=== PATIENT | female | born 1965 | race Caucasian/White ===

== ENCOUNTER 2017-11-24 12:44 | Inpatient (IN) ==
[2017-11-24 14:22] LABS: Baso % (Auto) 0.3 % (0.0-2.0); Eos # (Auto) 0.1 th/mm3 (0.0-0.4); Eos % (Auto) 1.3 % (0.0-4.0); Hematocrit 38.1 % (35.0-46.0); Hemoglobin 12.8 gm/dL (11.6-15.3); Lymph # (Auto) 2.1 th/mm3 (1.0-4.8); Lymph % (Auto) 28.9 % (9.0-44.0); Mean Corpuscular HGB Conc 33.6 % (32.0-36.0); Mean Corpuscular Hemoglobin 31.4 pg (27.0-34.0); Mean Corpuscular Volume 93.5 fL (80.0-100.0); Mean Platelet Volume 6.4 fL (7.0-11.0); Mono # (Auto) 0.5 th/mm3 (0.0-0.9); Neut # (Auto) 4.6 th/mm3 (1.8-7.7); Neut % (Auto) 62.5 % (16.0-70.0); Platelet Count 442 th/mm3 (150-450); Red Blood Count 4.07 mil/mm3 (4.00-5.30); Red Cell Distribution Width 12.9 % (11.6-17.2); White Blood Count 7.3 th/mm3 (4.0-11.0)
[2017-11-24 14:27] LABS: Bilirubin,Urine Negative (Negative); Clarity,Urine Clear (Clear); Color,Urine Straw (Yellw/Straw); Glucose,Urine (UA) Negative (Negative); Leukocyte Esterase,Urine Trace (Negative); Mucus,Urine Few /lpf (Occasional); Nitrite,Urine Negative (Negative); Squamous Epithelial Cell,Urine 3 /hpf (0-5)
[2017-11-24 14:33] LABS: Amphetamine Screen,Urine Neg (Neg); Barbiturate Screen,Urine Neg (Neg); Cannabinoid Screen,Urine Neg (Neg); Cocaine Screen,Urine Neg (Neg)
[2017-11-24 14:39] LABS: Anion Gap 7 meq/L (5-15); Aspartate Aminotransferase 17 U/L (15-37); Blood Urea Nitrogen 6 mg/dL (7-18); Calcium 8.6 mg/dL (8.5-10.1); Carbon Dioxide 27.6 meq/L (21.0-32.0); Chloride 103 meq/L (98-107); Glomerular Filtration Rate Greater Than 89 mL/min (>89); Glucose,Random 104 mg/dL (74-106); Potassium 3.7 meq/L (3.5-5.1); Sodium 138 meq/L (136-145)
[2017-11-24 14:40] LABS: Alanine Aminotransferase 31 U/L (10-53)
[2017-11-24 14:50] LABS: Alkaline Phosphatase 158 U/L (45-117); Thyroid Stimulating Hormone 0.505 uIU/mL (0.358-3.740); Total Protein 7.4 g/dL (6.4-8.2)
[2017-11-24 14:56] LABS: Opiate Screen,Urine Neg (Neg)
--- NOTE | 2017-11-24 15:16 | ED ---
HPI General Chief Complaint: Psychiatric Symptoms Stated Complaint: eval Time Seen by Provider: 11/24/17 13:45 Source: patient and family Mode of arrival: ambulatory Limitations: no limitations History of Present Illness HPI Narrative: Patient is a 52-year-old female presenting to the emergency department voluntarily for psychiatric evaluation. Patient states she has a history of bipolar 1 disorder, her medication is not working. Patient reports that she attempted to cut her wrist with a razor blade prior to arrival. She attempted about 6 months ago with the same modality. She denies any hallucinations but states she is tired of living with her mind like this. Patient is tearful and guarded. She states that she has a perfect life and does not know why she is supposed to be feeling this way. She reports that her psychiatrist changed her medications but is not helping. MD complaint: suicidal ideation and feels depressed Duration: constant History of same: Yes Relieving factors: none Exacerbating factors: none Context: new medication(s) Associated psychiatric symptoms: depression Associated symptoms: nausea If self harm: admits thoughts of self harm, has acted on plan and self- inflicted trauma Related Data Home Medications Medication Instructions Recorded Confirmed diazepam 10 mg PO TID 11/24/17 11/24/17 duloxetine 90 mg PO DAILY 11/24/17 11/24/17 metaxalone 800 mg PO TID 11/24/17 11/24/17 oxcarbazepine 600 mg PO BID 11/24/17 11/24/17 oxycodone-acetaminophen See Label Instructions .ROUTE 11/24/17 11/24/17 .COMPLEX promethazine 25 mg PO Q6H PRN 11/24/17 11/24/17 quetiapine 25 mg PO HS 11/24/17 11/24/17 Allergies Allergy/AdvReac Type Severity Reaction Status Date / Time amoxicillin Allergy Severe RASH Verified 11/24/17 12:51 clavulanic acid Allergy Severe RASH Verified 11/24/17 12:51 diphenhydramine Allergy Severe SHAKES Verified 11/24/17 12:51 Review of Systems ROS: all other systems reviewed are negative [facility] Medical History Medical History Bipolar 1 disorder (Acute) Social History Social History Smoking Status: Current every day smoker Tobacco Type: Cigarettes How Often Do You Have a Drink Containing Alcohol: Monthly or less Recent Travel in [place] within the Last 8 Weeks: No Recent Out of Country Travel within the Last 8 Weeks: No Immunization History Tetanus Immunization: <5 Years Exam Narrative Exam Narrative: GENERAL: Well-developed, well-nourished, well-kept female. Presenting in no acute distress. SKIN: Focused skin assessment warm/dry. HEAD: Atraumatic. Normocephalic. EYES: Pupils equal and round. No scleral icterus. No injection or drainage. ENT: No nasal bleeding or discharge. Mucous membranes pink and moist. NECK: Trachea midline. No JVD. CARDIOVASCULAR: Tachycardic. No murmur appreciated. RESPIRATORY: No accessory muscle use. Clear to auscultation. Breath sounds equal bilaterally. GASTROINTESTINAL: Abdomen soft, non-tender, nondistended. Hepatic and splenic margins not palpable. MUSCULOSKELETAL: No obvious deformities. No clubbing. No cyanosis. No edema. NEUROLOGICAL: Awake and alert. No obvious cranial nerve deficits. Motor grossly within normal limits. Normal speech. PSYCHIATRIC: Depressed mood and affect; insight and judgment normal. Course Initial Documented Vital Signs Temperature 97.9 F 11/24/17 12:54 Pulse Rate 127 H 11/24/17 12:54 Respiratory Rate 20 11/24/17 12:54 Blood Pressure 168/115 H 11/24/17 12:54 Pulse Oximetry 98 11/24/17 12:54 Last Documented Vital Signs Temperature 97.9 F 11/24/17 12:54 Pulse Rate 127 H 11/24/17 12:54 Respiratory Rate 20 11/24/17 12:54 Blood Pressure 168/115 H 11/24/17 12:54 Pulse Oximetry 98 11/24/17 12:54 Medical Decision Making MDM Narrative Medical decision making narrative: Patient is a 52-year-old female presenting to the emergency department voluntarily for psychiatric evaluation. Mental health screening discussed with the patient. Psychiatric screen ordered. Patient is tachycardic on arrival, she is visibly upset. Ativan 1 mg IV ordered. Labs reviewed, no acute findings identified. Patient's heart rate has trended down and is currently in the 80s. Patient is resting comfortably. Patient is medically cleared for psychiatric evaluation. Differential Diagnosis Differential Diagnosis: Mood disorder versus substance abuse versus psychosis versus metabolic abnormality versus other Lab Data Result diagrams: 11/24/17 14:00 11/24/17 14:00 Lab Results 11/24/17 11/24/17 11/24/17 Range/Units 14:00 14:00 14:00 WBC 7.3 (4.0-11.0) th/mm3 RBC 4.07 (4.00-5.30) mil/mm3 Hgb 12.8 (11.6-15.3) gm/dL Hct 38.1 (35.0-46.0) % MCV 93.5 (80.0-100.0) fL MCH 31.4 (27.0-34.0) pg MCHC 33.6 (32.0-36.0) % RDW 12.9 (11.6-17.2) % Plt Count 442 (150-450) th/mm3 MPV 6.4 L (7.0-11.0) fL Neut % (Auto) 62.5 (16.0-70.0) % Lymph % (Auto) 28.9 (9.0-44.0) % [place] % (Auto) 7.0 (0.0-8.0) % Eos % (Auto) 1.3 (0.0-4.0) % Baso % (Auto) 0.3 (0.0-2.0) % Neut # (Auto) 4.6 (1.8-7.7) th/mm3 Lymph # (Auto) 2.1 (1.0-4.8) th/mm3 [place] # (Auto) 0.5 (0.0-0.9) th/mm3 Eos # (Auto) 0.1 (0.0-0.4) th/mm3 Baso # (Auto) 0.0 (0.0-0.2) th/mm3 WBC Differential . Differential Comment Auto diff final Sodium 138 (136-145) meq/L Potassium 3.7 (3.5-5.1) meq/L Chloride 103 (98-107) meq/L Carbon Dioxide 27.6 (21.0-32.0) meq/L Anion Gap 7 (5-15) meq/L BUN 6 L (7-18) mg/dL Creatinine 0.69 (0.50-1.00) mg/dL Estimated GFR Greater than 89 (>89) mL/min Random Glucose 104 (74-106) mg/dL Calcium 8.6 (8.5-10.1) mg/dL Total Bilirubin 0.1 L (0.2-1.0) mg/dL AST 17 (15-37) U/L ALT 31 (10-53) U/L Alkaline Phosphatase 158 H (45-117) U/L Total Protein 7.4 (6.4-8.2) g/dL Albumin 4.0 (3.4-5.0) g/dL TSH 0.505 (0.358-3.740) uIU/mL Urine Color (Yellw/Straw) Urine Clarity (Clear) Urine pH (5.0-8.5) Ur Specific [place] (1.002-1.035) Urine Protein (Neg-Trace) mg/dL Urine Glucose (UA) (Negative) mg/dL Urine Ketones (Negative) mg/dL Urine Occult Blood (Negative) Urine Nitrate (Negative) Urine Bilirubin (Negative) Urine Urobilinogen (Less than 2) mg/dL Ur Leukocyte Esterase (Negative) Urine RBC (0-3) /hpf Urine WBC (0-5) /hpf Ur Squamous Epith Cells (0-5) /hpf Urine Mucus (Occasional) /lpf Micro UA Comment Urine Culture Comments Urine Opiates Screen Neg (Neg) Ur Barbiturates Screen Neg (Neg) Ur Amphetamines Screen Neg (Neg) U Benzodiazepines Scrn Pos H (Neg) Urine Cocaine Screen Neg (Neg) U Cannabinoids Screen Neg (Neg) Serum Alcohol Less than 3 (0-5) mg/dL 11/24/17 Range/Units 14:00 WBC (4.0-11.0) th/mm3 RBC (4.00-5.30) mil/mm3 Hgb (11.6-15.3) gm/dL Hct (35.0-46.0) % MCV (80.0-100.0) fL MCH (27.0-34.0) pg MCHC (32.0-36.0) % RDW (11.6-17.2) % Plt Count (150-450) th/mm3 MPV (7.0-11.0) fL Neut % (Auto) (16.0-70.0) % Lymph % (Auto) (9.0-44.0) % [place] % (Auto) (0.0-8.0) % Eos % (Auto) (0.0-4.0) % Baso % (Auto) (0.0-2.0) % Neut # (Auto) (1.8-7.7) th/mm3 Lymph # (Auto) (1.0-4.8) th/mm3 [place] # (Auto) (0.0-0.9) th/mm3 Eos # (Auto) (0.0-0.4) th/mm3 Baso # (Auto) (0.0-0.2) th/mm3 WBC Differential Differential Comment Sodium (136-145) meq/L Potassium (3.5-5.1) meq/L Chloride (98-107) meq/L Carbon Dioxide (21.0-32.0) meq/L Anion Gap (5-15) meq/L BUN (7-18) mg/dL Creatinine (0.50-1.00) mg/dL Estimated GFR (>89) mL/min Random Glucose (74-106) mg/dL Calcium (8.5-10.1) mg/dL Total Bilirubin (0.2-1.0) mg/dL AST (15-37) U/L ALT (10-53) U/L Alkaline Phosphatase (45-117) U/L Total Protein (6.4-8.2) g/dL Albumin (3.4-5.0) g/dL TSH (0.358-3.740) uIU/mL Urine Color Straw (Yellw/Straw) Urine Clarity Clear (Clear) Urine pH 7.0 (5.0-8.5) Ur Specific [place] 1.010 (1.002-1.035) Urine Protein Negative (Neg-Trace) mg/dL Urine Glucose (UA) Negative (Negative) mg/dL Urine Ketones Negative (Negative) mg/dL Urine Occult Blood Negative (Negative) Urine Nitrate Negative (Negative) Urine Bilirubin Negative (Negative) Urine Urobilinogen Less than 2 (Less than 2) mg/dL Ur Leukocyte Esterase Trace H (Negative) Urine RBC 1 (0-3) /hpf Urine WBC 1 (0-5) /hpf Ur Squamous Epith Cells 3 (0-5) /hpf Urine Mucus Few H (Occasional) /lpf Micro UA Comment Culture not ind Urine Culture Comments Culture not ind Urine Opiates Screen (Neg) Ur Barbiturates Screen (Neg) Ur Amphetamines Screen (Neg) U Benzodiazepines Scrn (Neg) Urine Cocaine Screen (Neg) U Cannabinoids Screen (Neg) Serum Alcohol (0-5) mg/dL Discharge Plan Discharge Disposition Patient Disposition: 30 Still Patient Discharge Condition Condition: Stable Discharge Details Diagnosis: Medical clearance for psychiatric admission, Bipolar 1 disorder Physicians Team ED Provider: Christian Norris ED Midlevel Provider: Gwendolyn Trejo Primary Care Provider: Primary Care GatoiNilam Rxs /Orders / Referrals /Forms Prescriptions: No Action duloxetine 30 mg Capsule,Delayed Release(Dr/Ec) 90 mg PO DAILY RF: 0 oxcarbazepine 600 mg Tablet 600 mg PO BID RF: 0 diazepam 10 mg Tablet 10 mg PO TID RF: 0 quetiapine 25 mg Tablet 25 mg PO HS RF: 0 oxycodone-acetaminophen See Label Instructions .ROUTE .COMPLEX RF: 0 metaxalone 800 mg Tablet 800 mg PO TID RF: 0 promethazine 25 mg Tablet 25 mg PO Q6H PRN (Reason: Abdominal Pain) RF: 0 Status ED Status: Medically Cleared
[2017-11-24] MEDS ORDERED: Melatonin 5 MG Tablet PO PRN (20:12)
[2017-11-24] MEDS ORDERED: Acetaminophen 325 MG Tablet PO PRN (20:12)
[2017-11-24] MEDS ORDERED: Aluminum/Magnesium/Simethacone Susp 30 ML UDC PO PRN (20:12)
[2017-11-24] MEDS ORDERED: OXcarbazepine 600 MG Tablet PO SCH (21:00)
[2017-11-25] MEDS: Metaxalone 800 MG Tablet PO SCH ×3 (11:11→17:18)
[2017-11-25 11:38] LABS: Albumin 4.2 g/dL (3.4-5.0)
[2017-11-25 11:42] LABS: Chol/HDL Ratio 2.51 Ratio; HDL Cholesterol 78.8 mg/dL (40.0-60.0); Total Protein 7.9 g/dL (6.4-8.2)
[2017-11-25 12:48] LABS: Hemoglobin A1c 5.7 % (4.3-6.0)
--- NOTE | 2017-11-25 13:18 | P.CON ---
History of Present Illness Primary Care Provider: No Primary Care Physician History of Present Illness: cancel PMFSH - History History Provided By: Patient - Medical History Medical History: Medical History (Last Reviewed 11/24/17 @ 15:14 by LATRICE Lundy) Bipolar 1 disorder - Tobacco History Second Hand Smoke Exposure: No Tobacco Use In Past 30 Days: Yes Smoking Status: Current every day smoker Tobacco Type: Cigarettes - Alcohol History How Often Do You Have a Drink Containing Alcohol: Never - Substance Use History Substance History: No History of Abuse - Travel History Recent Travel in the [place] Within the Last 8 Weeks: No Recent Travel Out of the Country Within the Last 8 Weeks: No - Immunization History Tetanus Immunization: <5 Years Medications and Allergies Active Medications: Active Medications Acetaminophen (Tylenol) 650 mg PO Q4H PRN PRN Reason: Pain 1-5 or Temp >101F Al Hydrox/Mg Hydrox/Simethicone (Mag-Al Plus Susp Liq) 30 ml PO Q6H PRN PRN Reason: DYSPEPSIA Al Hydroxide/Mg Hydroxide (Milk Of Magnesia Liq) 30 ml PO Q12H PRN PRN Reason: Mild Constipation Diazepam (Valium) 5 mg PO TID PRN PRN Reason: ANXIETY Melatonin (Melatonin) 5 mg PO HS PRN PRN Reason: INSOMNIA Metaxalone (Skelaxin) 800 mg PO TID [facility] Last Admin: 11/25/17 11:11 Dose: 800 mg Nicotine (Habitrol 21 Mg Patch.24 Hr) 1 patch T-DERMAL DAILY PRN PRN Reason: nicotine craving Oxcarbazepine (Trileptal) 600 mg PO BID [facility] Last Admin: 11/25/17 09:48 Dose: 600 mg Oxycodone/Acetaminophen (Percocet 10/325 Mg) 1 tab PO Q4H PRN PRN Reason: Pain7-10 Patch Removal (Remove Old Patch) 1 each T-DERMAL DAILY PRN PRN Reason: NICTOINE CRAVING Promethazine HCl (Phenergan) 25 mg PO Q6H PRN PRN Reason: Abdominal Pain Allergies Allergy/AdvReac Type Severity Reaction Status Date / Time amoxicillin Allergy Severe RASH Verified 11/24/17 12:51 clavulanic acid Allergy Severe RASH Verified 11/24/17 12:51 diphenhydramine Allergy Severe SHAKES Verified 11/24/17 12:51 Home Medications Medication Instructions Recorded Confirmed Type diazepam 10 mg PO TID 11/24/17 11/25/17 History duloxetine 90 mg PO DAILY 11/24/17 11/24/17 History metaxalone 800 mg PO TID 11/24/17 11/24/17 History oxcarbazepine 600 mg PO BID 11/24/17 11/24/17 History oxycodone-acetaminophen 10 mg Q4-6H PRN 11/24/17 11/25/17 History promethazine 25 mg PO Q6H PRN 11/24/17 11/24/17 History quetiapine 25 mg PO HS 11/24/17 11/24/17 History Physical Exam Vital signs: Vital Signs 11/24/17 19:09 11/24/17 21:50 11/25/17 05:47 Temperature 98.3 F 97.3 F L Pulse Rate 89 100 H 91 H Respiratory Rate 16 16 18 Blood Pressure 149/90 H 168/114 H 127/85 Pulse Oximetry 97 99 98 Intake & Output 11/24/17 11/25/17 11/25/17 18:59 06:59 18:59 Weight 55.792 kg 60.4 kg Other: Weight On Admission 60.4 kg
[2017-11-25] MEDS: oxyCODONE/Acetaminophen 10/325 Tablet PO PRN ×3 (13:29→21:38)
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
[2017-11-25] MEDS: OXcarbazepine 300 MG Tablet PO SCH (20:21)
[2017-11-26] MEDS: oxyCODONE/Acetaminophen 10/325 Tablet PO PRN ×4 (04:32→21:50)
--- NOTE | 2017-11-26 12:20 | P.CON ---
History of Present Illness Service: [facility] Consult date: 11/26/17 Requesting Physician: Parvez Morrissey Reason for Consult: Migraines Primary Care Provider: No Primary Care Physician Chief Complaint: "I have the worse headache" History of Present Illness: 52-year-old female with past medical history of bipolar disorder, chronic migraines, and chronic pain who presented to the emergency department on 11/24 on a voluntary basis after she reported that her bipolar medication was not working. Patient also reported that she has had made several attempts to cut her wrists with razor blade. Patient was cleared medically in the emergency department and admitted to inpatient psychiatry unit. [facility] consulted due to migraine headaches. Patient is seen and examined in her room with nurse present, reports that since about 4 AM this morning she has had "the worst headache". She endorses photophobia and phonophobia along with nausea and vomiting. She reports that she is unable to keep her pain medication down therefore unable to get any relief from migraine. She describes migraine headache as a tight visor around her head which is "squeezing". She denies any abdominal pain or discomfort, diarrhea, constipation, fevers or chills. She reports that her last bowel movement was this morning and was normal. Patient states that she was seen by a neurologist sometime ago possibly Dr. Osorio who started her on p.o. propanolol however her blood pressure would not tolerate this and caused her to be hypotensive. 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 She is reluctant to try propanolol, she is agreeable to try Imitrex injection as well as rectal Phenergan. We will try to administer p.o. pain medication once patient is no longer nauseous. If nausea does not improve discussed with patient and RN we may need to transfer her to medical psychiatry unit, patient agreeable. Review of Systems All other systems reviewed negative except as stated in HPI [facility] - History History Provided By: Patient, Medical Record - Medical History Medical History: Medical History (Last Updated 11/26/17 @ 12:39 by Cesar Fitzgerald) Bipolar 1 disorder HX: breast cancer Migraine headache - Surgical History Surgical History: Surgical History (Last Updated 11/26/17 @ 12:39 by Cesar Fitzgerald) H/O dilation and curettage Hx of breast augmentation Hx of tonsillectomy - Tobacco History Second Hand Smoke Exposure: No Tobacco Use In Past 30 Days: Yes Smoking Status: Current every day smoker Tobacco Type: Cigarettes - Alcohol History How Often Do You Have a Drink Containing Alcohol: Never - Substance Use History Substance History: No History of Abuse - Travel History Recent Travel in the [place] Within the Last 8 Weeks: No Recent Travel Out of the Country Within the Last 8 Weeks: No - Immunization History Tetanus Immunization: <5 Years Medications and Allergies Active Medications: Active Medications Acetaminophen (Tylenol) 650 mg PO Q4H PRN PRN Reason: Pain 1-5 or Temp >101F Al Hydrox/Mg Hydrox/Simethicone (Mag-Al Plus Susp Liq) 30 ml PO Q6H PRN PRN Reason: DYSPEPSIA Al Hydroxide/Mg Hydroxide (Milk Of Magnesia Liq) 30 ml PO Q12H PRN PRN Reason: Mild Constipation Aripiprazole (Abilify) 5 mg PO DAILY [facility] Diazepam (Valium) 5 mg PO TID PRN PRN Reason: ANXIETY Last Admin: 11/26/17 04:33 Dose: 5 mg Duloxetine HCl (Cymbalta) 90 mg PO DAILY [facility] Metaxalone (Skelaxin) 800 mg PO TID [facility] Last Admin: 11/25/17 17:18 Dose: 800 mg Miscellaneous (Pill Splitter) 1 each OTHER UNSCH [facility] Nicotine (Habitrol 21 Mg Patch.24 Hr) 1 patch T-DERMAL DAILY PRN PRN Reason: nicotine craving Last Admin: 11/25/17 13:54 Dose: 1 patch Oxcarbazepine (Trileptal) 900 mg PO [facility] Last Admin: 11/25/17 20:21 Dose: 900 mg Oxcarbazepine (Trileptal) 600 mg PO DAILY [facility] Oxycodone/Acetaminophen (Percocet 10/325 Mg) 1 tab PO Q4H PRN PRN Reason: Pain7-10 Last Admin: 11/26/17 09:18 Dose: 1 tab Patch Removal (Remove Old Patch) 1 each T-DERMAL DAILY PRN PRN Reason: NICTOINE CRAVING Promethazine HCl (Phenergan) 25 mg PO Q6H PRN PRN Reason: Abdominal Pain Last Admin: 11/26/17 09:19 Dose: 25 mg Promethazine HCl (Phenergan Supp) 25 mg RECTAL Q6H PRN PRN Reason: NAUSEA OR VOMITING Zolpidem Tartrate (Ambien) 10 mg PO HS PRN PRN Reason: INSOMNIA Last Admin: 11/25/17 22:54 Dose: 10 mg Allergies Allergy/AdvReac Type Severity Reaction Status Date / Time amoxicillin Allergy Severe RASH Verified 11/24/17 12:51 clavulanic acid Allergy Severe RASH Verified 11/24/17 12:51 diphenhydramine Allergy Severe SHAKES Verified 11/24/17 12:51 Home Medications Medication Instructions Recorded Confirmed Type diazepam 10 mg PO TID 11/24/17 11/25/17 History duloxetine 90 mg PO DAILY 11/24/17 11/24/17 History metaxalone 800 mg PO TID 11/24/17 11/24/17 History oxcarbazepine 600 mg PO BID 11/24/17 11/24/17 History oxycodone-acetaminophen 10 mg Q4-6H PRN 11/24/17 11/25/17 History promethazine 25 mg PO Q6H PRN 11/24/17 11/24/17 History quetiapine 25 mg PO HS 11/24/17 11/24/17 History Physical Exam Vital signs: Vital Signs 11/26/17 05:45 11/26/17 09:30 Temperature 97.6 F Pulse Rate 99 H 95 H Respiratory Rate 16 20 Blood Pressure 126/89 146/98 H Pulse Oximetry 100 98 Intake & Output 11/25/17 11/26/17 11/26/17 18:59 06:59 18:59 Weight 59 kg Narrative: GENERAL: Well-nourished, well-developed female sitting up in bed eyes closed. SKIN: Warm and dry. HEAD: Atraumatic. Normocephalic. EYES: Pupils equal and round. No scleral icterus. No injection or drainage. ENT: No nasal bleeding or discharge. Mucous membranes pink and moist. NECK: Trachea midline. CARDIOVASCULAR: Regular rate and rhythm. RESPIRATORY: No accessory muscle use. Clear to auscultation. Breath sounds equal bilaterally. GASTROINTESTINAL: Abdomen soft, non-tender, nondistended. + Sounds MUSCULOSKELETAL: Extremities without clubbing, cyanosis, or edema. No obvious deformities. NEUROLOGICAL: Awake and alert. No obvious cranial nerve deficits. Motor grossly within normal limits. Five out of 5 muscle strength in the arms and legs. Normal speech. PSYCHIATRIC: Appropriate mood and affect; insight and judgment normal. Assessment and Plan - Assessment (1) Migraine headache Code(s): G43.909 - Migraine, unspecified, not intractable, without status migrainosus Status: Acute (2) Nausea & vomiting Code(s): R11.2 - Nausea with vomiting, unspecified Status: Acute (3) Bipolar 1 disorder Code(s): F31.9 - Bipolar disorder, unspecified Status: Acute - Plan 52-year-old female with past medical history of bipolar disorder, chronic migraines, and chronic pain who presented to the emergency department on 11/24 on a voluntary basis after she reported that her bipolar medication was not working. Patient also reported that she has had made several attempts to cut her wrists with razor blade. Patient was cleared medically in the emergency department and admitted to inpatient psychiatry unit. [facility] consulted due to migraine headaches. Migraine headaches, chronic -Patient reports "worse headache", check head CT scan to rule out acute abnormality -Treat nausea and vomiting with antiemetics, attempt to give pain medication once again -Reluctant to try propanolol which has worked in the past due to hypotension experience, try subcu Imitrex -Chronic pain, continue Percocet. Nausea/vomiting -Most likely secondary to above, treat with rectal Phenergan -If ongoing and unable to keep fluids down, consider IV hydration -Check BMP Dizziness, chronic -Offered as needed meclizine Bipolar disorder SI -Treatment plan per psychiatry DVT prophylaxisambulation Thank you for this consultation, will continue to follow along.
[2017-11-26] MEDS: Promethazine 25 MG Supp RECTAL PRN (12:45)
--- NOTE | 2017-11-26 14:47 | P.PNPSY ---
Subjective Chief Complaint: Self-injurious behavior Remarks: Patient seen and examined with nurse. Chart reviewed. Case discussed with nursing staff. Patient complained of migraine headache and associated nausea this morning. I requested hospitalist consultation, and their input is appreciated. On my examination this afternoon, the patient says that she is starting to feel better as a consequence of the hospitalist's ministrations. She was unable to take her oral medications this morning secondary to nausea, and I have encouraged her to take these medications with the exception of the Trileptal given the lateness of the hour and the proximity to nighttime dose of this medication. She remains enthusiastic about possibility of residential treatment. Denies any suicidal ideation. Besides resolving headache, no acute physical complaints. Review of Systems All other systems reviewed negative except as stated in HPI Mental Status Examination Appearance: Appropriate Consciousness: Alert Orientation: x4 Motor Activity: Other (No motor abnormalities noted) Speech: Unremarkable Language: Adequate Fund of Knowledge: Adequate Attention and Concentration: Adequate Memory: Unremarkable (Grossly intact on clinical exam) Mood: Appropriate Affect: Appropriate Thought Process & Associations: Intact Thought Content: Appropriate Hallucination Type: None Delusion Type: None Suicidal Ideation: No Suicidal Plan: No Suicidal Intention: No Homicidal Ideation: No Homicidal Plan: No Homicidal Intention: No Insight: Fair Judgment: Impulsive Assessment and Plan - Assessment (1) Adjustment disorder with mixed disturbance of emotions and conduct Code(s): F43.25 - Adjustment disorder with mixed disturbance of emotions and conduct Status: Acute (2) Borderline personality disorder Code(s): F60.3 - Borderline personality disorder Status: Suspected - Plan Plan: Offer Abilify with other psychotropics except Trileptal this afternoon. Resume Trileptal with the evening dose. Hospitalist input noted and appreciated. Continue other medications and care as ordered. Justification for Continued Inpatient Stay: Risk for decompensation. Complicating condition. Discharge Planning: Hopeful for discharge middle of this week to residential treatment. Case discussed with counselor. Request Healthcare Surrogate/Guardian Advocate?: No
[2017-11-26] MEDS: Metaxalone 800 MG Tablet PO SCH ×3 (15:21→17:00)
[2017-11-26] MEDS: ARIPiprazole 5 MG Tablet PO SCH (15:21)
[2017-11-26] MEDS: OXcarbazepine 600 MG Tablet PO SCH (15:22)
--- NOTE | 2017-11-26 16:06 | CT ---
EXAM DATE: 11/26/2017 4:02 PM EDT AGE/SEX: 52 years / Female INDICATIONS: Cephalgia today. CLINICAL DATA: This is the patient's initial encounter. Patient reports that signs and symptoms have been present for 1 day and indicates a pain score of 7/10. MEDICAL/SURGICAL HISTORY: None. None. RADIATION DOSE: 35.15 CTDI (mGy) COMPARISON: [facility], CT BRAIN W/O CONTRAST, 05/30/2017. . TECHNIQUE: CT of the head without contrast. Using automated exposure control and adjustment of the mA and/or kV according to patient size, radiation dose was kept as low as reasonably achievable to ob tain optimal diagnostic quality images. DICOM format image data is available electronically for revi ew and comparison. FINDINGS: Cerebrum: The ventricles are normal for age. No evidence of midline shift, mass lesion, hemorrhage or acute infarction. No extraaxial fluid collections are seen. Posterior Fossa: The cerebellum and brainstem are intact. The 4th ventricle is midline. The cerebe llopontine angle is unremarkable. Extracranial: The visualized portion of the orbits is intact. Skull: The calvaria is intact. No evidence of skull fracture. CONCLUSION: 1. Negative for an acute process . Electronically signed by: Pool Rasheed MD 11/26/2017 4:04 PM EDT
--- NOTE | 2017-11-26 16:20 | ECG ---
Date Performed: 11/25/2017 Time Performed: 12:05:10 PTAGE: 52 years EKG: Sinus rhythm NORMAL ECG Since the PREVIOUS TRACING , no significant change noted PREVIOUS TRACIN05/10/2009 16.56 DOCTOR: Licha Galindo Interpretating Date/Time 11/26/2017 16:19:16
[2017-11-26] MEDS ORDERED: Metoclopramide 10 MG Tablet PO SCH ×2 (17:00→21:00)
[2017-11-26 18:32] LABS: Carbon Dioxide 33.7 meq/L (21.0-32.0); Potassium 3.8 meq/L (3.5-5.1)
[2017-11-26] MEDS: OXcarbazepine 300 MG Tablet PO SCH (20:47)
[2017-11-27] MEDS: oxyCODONE/Acetaminophen 10/325 Tablet PO PRN ×4 (03:34→21:40)
[2017-11-27] MEDS: Promethazine 25 MG Supp RECTAL PRN ×2 (03:36→09:21)
[2017-11-27] MEDS: Metaxalone 800 MG Tablet PO SCH ×3 (09:23→17:04)
[2017-11-27] MEDS: OXcarbazepine 600 MG Tablet PO SCH (09:24)
[2017-11-27] MEDS: ARIPiprazole 5 MG Tablet PO SCH (09:24)
--- NOTE | 2017-11-27 13:22 | P.PNPSY ---
Subjective Remarks: Patient seen and examined with nurse. Chart reviewed. Case discussed with nursing staff. Patient has some residual headache but has had no emesis. She was able to receive her dose of Abilify yesterday and took her psychotropics this morning. Case discussed in treatment team. Counselor is working on getting the patient to residential treatment. On my examination today, the patient is in good spirits. She believes that the addition of Abilify is helping to stabilize her mood. She denies any suicidal ideation, denies any urge to self injure. Denies any side effects from medications. Besides resolving headache, no acute physical complaints. Vital Signs Temp Pulse Resp BP Pulse Ox 11/27/17 07:07 97.4 F L 87 17 114/56 L 98 11/27/17 06:00 97.4 F L 87 17 114/56 L 98 11/26/17 18:00 97.9 F 93 H 18 119/75 Laboratory Results - last 24 hr 11/26/17 17:45 Sodium 142 Potassium 3.8 Chloride 102 Carbon Dioxide 33.7 H Anion Gap 6 BUN 8 Creatinine 0.76 Estimated GFR 81 L Random Glucose 111 H Calcium 9.0 Labs reviewed. Impressions Head CT 11/26/17 00:00 CONCLUSION: 1. Negative for an acute process. Review of Systems All other systems reviewed negative except as stated in HPI Mental Status Examination Appearance: Appropriate Consciousness: Alert Orientation: x4 Motor Activity: Other (No abnormal motor movements noted) Speech: Unremarkable Language: Adequate Fund of Knowledge: Adequate Attention and Concentration: Adequate Memory: Unremarkable (Grossly intact on clinical exam) Mood: Appropriate Affect: Appropriate Thought Process & Associations: Intact Thought Content: Appropriate Hallucination Type: None Delusion Type: None Suicidal Ideation: No Suicidal Plan: No Suicidal Intention: No Homicidal Ideation: No Homicidal Plan: No Homicidal Intention: No Insight: Fair Judgment: Impulsive Assessment and Plan - Assessment (1) Adjustment disorder with mixed disturbance of emotions and conduct Code(s): F43.25 - Adjustment disorder with mixed disturbance of emotions and conduct Status: Acute (2) Borderline personality disorder Code(s): F60.3 - Borderline personality disorder Status: Suspected - Plan Plan: Continue Abilify and other psychotropics as ordered. Continue to monitor on the inpatient unit. Hospitalist input appreciated. Continue other care as ordered. Justification for Continued Inpatient Stay: Risk for decompensation in less restrictive environment. Discharge Planning: Hopeful for transfer to residential program tomorrow or perhaps . Request Healthcare Surrogate/Guardian Advocate?: No
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
[2017-11-27 17:50] VITALS: TEMP 98
[2017-11-27] MEDS: OXcarbazepine 300 MG Tablet PO SCH (20:53)
[2017-11-28] MEDS: oxyCODONE/Acetaminophen 10/325 Tablet PO PRN ×2 (02:37→07:10)
[2017-11-28] MEDS: OXcarbazepine 600 MG Tablet PO SCH (09:00)
[2017-11-28] MEDS: ARIPiprazole 5 MG Tablet PO SCH (09:01)
[2017-11-28] MEDS: Metaxalone 800 MG Tablet PO SCH (09:01)
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
[2017-11-28 12:32] VITALS: BP 96/64; PULSE 87; RESP 17; O2SAT 98
== END 2017-11-28 14:25 | disposition home or self-care (01) ==
LOC: NEPD 12:44 → NEDA 20:12 → H260 21:42
PROVIDERS: ADMIT Psychiatry & Neurology Psychiatry; ATTEND Psychiatry & Neurology Psychiatry